=== PATIENT | male | born 1990 | race Caucasian/White ===

== ENCOUNTER 2017-06-14 22:20 | Emergency (ER) | payer OTHER ==
[~2017-06-14] VITALS: Ht 193 cm; Wt 143.2 kg
[~2017-06-14 22:20] MED LIST: AMOXICILLIN500 MG PO; ASPIRIN LOW DOS81 MG PO; CIPROFLOXACN500 MG PO; CITALOPRAM20 MG PO; CLONAZEPAM0.5 MG PO; HYDROCORTISO2.51 EX; LEXAPRO10 MG PO; ZESTRIL/PRI20 MG/TAB PO
[2017-06-14] MEDS ORDERED: AMLODIPINE5 MG PO (23:02)
[2017-06-14 23:35] LABS: INFLUENZA A NONE DETECTED (NONE DETECT); INFLUENZA B NONE DETECTED (NONE DETECT)
[2017-06-14] MEDS ORDERED: ROBITUSSIN AC10 ML PO (23:46)
[2017-06-14] MEDS ORDERED: ZPAK PO (23:46)
[2017-06-14 23:55] VITALS: BP 139/85
== END 2017-06-15 00:05 | disposition home or self-care (01) | DRG 153 ==
LOC: ED 22:20
PROVIDERS: Emergency Medicine
DX: J06.9 Acute upper respiratory infection, unspecified (principal); F41.9 Anxiety disorder, unspecified; I10 Essential (primary) hypertension

== ENCOUNTER 2020-12-12 00:13 | Emergency (ER) | payer OTHER ==
[~2020-12-12] VITALS: Ht 193 cm; Wt 138.0 kg
[~2020-12-12 00:13] MED LIST changes: +AMLODIPINE5 MG PO; +ROBITUSSIN AC10 ML PO; +ZPAK PO
[2020-12-12] MEDS ORDERED: BUSPIRONE5 MG PO (01:12)
[2020-12-12] MEDS ORDERED: CLONAZEPAM1 MG PO (01:13)
[2020-12-12] MEDS ORDERED: ZPAK PO (02:56)
[2020-12-12] MEDS ORDERED: DECADRON2 MG PO (02:56)
[2020-12-12 03:24] VITALS: BP 128/70
== END 2020-12-12 03:24 | disposition home or self-care (01) | DRG 177 ==
LOC: ED 00:13
DX: U07.1 COVID-19 (principal); J12.82 Pneumonia due to coronavirus disease 2019; I10 Essential (primary) hypertension; F41.9 Anxiety disorder, unspecified